=== PATIENT | male | born 1990 | race Caucasian/White ===

== ENCOUNTER 2018-01-25 21:40 | Emergency (ER) | payer BC ==
[~2018-01-25] VITALS: Ht 167.6 cm; Wt 68.0 kg
[2018-01-25] MEDS ORDERED: HYDROCODONE/APAP 10MG-325MG TAB PO ONE (23:00)
== END 2018-01-25 23:27 | disposition left against medical advice (07) ==
LOC: ER 21:40
DX: M54.2 Cervicalgia (principal)